=== PATIENT | female | born 1965 | race Caucasian/White ===

== ENCOUNTER 2019-11-06 22:18 | Emergency (ER) | payer SELFPAY ==
[~2019-11-06] VITALS: Ht 157.5 cm; Wt 90.7 kg
[2019-11-06] MEDS ORDERED: LISINOPRIL20 MG PO (22:29)
[2019-11-06] MEDS ORDERED: NORVASC10 MG PO (22:30)
[2019-11-07] MEDS ORDERED: DICLOFENAC SODI75 MG PO (01:14)
[2019-11-07] MEDS ORDERED: CYCLOBENZAPRINE10 MG PO (01:14)
== END 2019-11-07 01:25 | disposition home or self-care (01) ==
LOC: ED 22:18
DX: M54.5 Low back pain (principal); I10 Essential (primary) hypertension; F17.200 Nicotine dependence, unspecified, uncomplicated; Z79.899 Other long term (current) drug therapy
CPT/HCPCS: 80053; 81001; 85025; 96374; 99283-25; J1885